=== PATIENT | male | born 1945 | race Caucasian/White ===

== ENCOUNTER 2016-06-17 06:55 | Inpatient (IN) | payer MEDICARE, OTHER ==
[2016-06-06 12:28] LABS: BASOPHILS 0.6 %; BASOPHILS ABSOLUTE 0.04 10/3/uL (0.0-0.16); EOSINOPHILS 2.3 %; EOSINOPHILS ABSOLUTE 0.15 10/3/uL (0.0-0.53); HEMATOCRIT 38.1 % (40.0-51.0); HEMOGLOBIN 12.6 g/dL (13.6-17.8); IMMATURE GRANULOCYTES 0.3 %; IMMATURE GRANULOCYTES ABSOLUTE 0.02 10/3/uL (0.0-0.11); LYMPHOCYTES 22.8 %; LYMPHOCYTES ABSOLUTE 1.47 10/3/uL (0.67-4.30); MEAN CORPUS HGB CONC 33.1 g/dL (32.0-36.0); MEAN CORPUSCULAR HEMOGLOB 28.8 pg (26.0-34.0); MEAN CORPUSCULAR VOLUME 87.2 fL (80-100); MEAN PLATELET VOLUME 9.2 fL (9.2-13.0); MONOCYTES 7.6 %; MONOCYTES ABSOLUTE 0.49 10/3/uL (0.21-1.20); NEUTROPHILS 66.4 %; NEUTROPHILS ABSOLUTE 4.27 10/3/uL (2.02-8.40); PLATELET COUNT 242 10/3/uL (150-400); RBC DISTRIBUTION WIDTH 14.1 % (12.0-16.0); RED CELL COUNT 4.37 10/6/uL (4.7-6.1); WHITE BLOOD CELLS 6.4 10/3/uL (4.5-10.5)
[2016-06-06 12:31] LABS: MANUAL DIFF NO %
[2016-06-06 12:35] LABS: INTERNATIONAL NORMAL RATI 1.2 UNITS (-)
[2016-06-06 12:47] LABS: A/G RATIO 1.3 (0.7-1.9); ALBUMIN 3.5 G/DL (3.5-5.0); ALKALINE PHOSPHATASE 104 U/L (45-117); BUN (BLOOD UREA NITROGEN) 11 MG/DL (6-23); CHLORIDE, SERUM 104 MMOL/L (96-112); CO2 (CARBON DIOXIDE) 30 MMOL/L (24-34); CREATININE 1.08 MG/DL (0.70-1.30); GFR AFRICAN AMERICAN 81 ML/MIN (>=60); GFR NON AFRICAN AMERICAN 70 ML/MIN (>=60); GLOBULIN 2.8 G/DL (2.5-4.1); POTASSIUM, SERUM 5.1 MMOL/L (3.5-5.3); SGOT(AST) 78 U/L (5-40); SGPT(ALT) 93 U/L (5-65); SODIUM, SERUM 138 MMOL/L (135-148); TOTAL BILIRUBIN 0.5 MG/DL (0-1.2); TOTAL PROTEIN 6.3 G/DL (6.0-8.5)
[2016-06-06 12:48] LABS: GLUCOSE, SERUM 89 MG/DL (60-99)
[2016-06-06 12:54] LABS: B NATRIURETIC PEPTIDE (BNP) 425.4 PG/ML (< 100.0)
[2016-06-06 12:56] LABS: ASCORBIC ACID (UR NOT ORDER) 40 (NEG); BILIRUBIN, URINE NEGATIVE (NEG); KETONE, URINE NEGATIVE (NEG); LEUKOCYTE ESTERASE(NOT OR NEG (NEG); WBC (NOT ORDERED) (RFLEX) < 1 (0-5)
[2016-06-06 22:10] LABS: GLYCOHEMOGLOBIN (HbA1c) 7.2 % (4.7-6.1)
--- NOTE | ~2016-06-17 | TEE ---
Transesophageal Echocardiogram [facility] [address] [place]. [address] NAME: SRI JAQUEZ SR : 47 STATUS : ADM IN [facility]#: [id number] AGE: 71 ADM/REG DATE : 06/17/16 MR#: [id number] REPORT SERV DATE: 06/18/16 DICTATED BY: DANN MCDERMOTT DATE: 06/17/16 REPORT STATUS : Draft TRANSCRIBED BY: MODL DATE: 06/17/16 REQUESTING: TAVR team including Dr. Kearns, Dr. Locke, and Dr. Donahue. INDICATIONS: This is a 71-year-old male, preparing for transcatheter aortic valve replacement due to severe nonoperative aortic stenosis, however prior to procedures starting and after anesthesia, the patient was noted to have ventricular tachycardia. Requested for urgent FORTINO prior to proceeding. Sedation was per Anesthesia and esophageal intubation was per Anesthesia. The remainder of FORTINO was per Cardiology. FINDINGS: CHAMBERS: 1. The left ventricle appears grossly normal in size. The visually estimated LVEF is 25%. This is reduced from 45%-50% on 01/24/2016 echo. There was severe global hypocontractility with inferior-inferoseptal akinesis. There was no mass or thrombus seen. 2. The left atrium appeared mildly enlarged. 3. The right ventricle appeared grossly normal in size with low-normal systolic function. 4. The right atrium appeared grossly normal in size. Superior and inferior vena cava appeared normal. VALVES: 1. The aortic valve morphology is trileaflet. It is heavily calcified and sclerotic with severely restricted mobility. There was no significant aortic regurgitation seen. 2. The mitral valve morphology is normal. There is moderate mitral annular calcification with thickened/sclerotic leaflets and restricted mobility. Visually estimated moderate mitral stenosis which correlates with the previous mitral valve area of 1.3 cm2 by invasive hemodynamics. 3. The pulmonic valve was not adequately visualized. 4. The tricuspid valve morphology is normal with fully mobile leaflets. Tricuspid regurgitation was not assessed. OTHER: 1. There was no pericardial effusion. The interatrial septum appeared intact. There was no pleural effusion. The descending thoracic aorta was not fully evaluated. 2. 3D interrogation of the aortic valve was performed with personal online manual manipulation confirming a trileaflet valve with severe calcific degeneration and sclerosis with a severely restricted mobility. 3. Test then terminated as the patient was awakening after anesthesia reversal. Transcatheter aortic valve replacement was canceled due to worsening LVEF and ventricular dysrhythmia. CONCLUSION: 1. 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 2. LV SIZE AT THE UPPER LIMITS OF NORMAL WITH SEVERE SYSTOLIC DYSFUNCTION, EF 20%. REGIONAL WALL MOTION ABNORMALITIES OUTLINED ABOVE. 3. MILD BIATRIAL ENLARGEMENT. 4. MODERATE MITRAL STENOSIS BY VISUAL ESTIMATE, CORRELATING WITH PREVIOUS DOCUMENTATION. Transesophageal Echocardiogram [address] [address] NAME: SRI JAQUEZ : 47 STATUS : ADM IN [facility]#: [id number] AGE: 71 ADM/REG DATE : 06/17/16 MR#: [id number] REPORT SERV DATE: 06/18/16 DICTATED BY: DANN MCDERMOTT. DATE: 06/17/16 REPORT STATUS : Draft TRANSCRIBED BY: NEEL DATE: 06/17/16 OMARA/NEEL Dann Mcdermott M.D. / [id number] CC: Kpi Kearns M.D.
--- NOTE | ~2016-06-17 | OP ---
Record Of Operation [facility] [address] [place]. [address] NAME: SIR JAQUEZ SR : 47 STATUS : ADM IN PAT#: [id number] AGE: 71 ADM/REG DATE : 06/17/16 MR#: [id number] REPORT SERV DATE: 06/17/16 DICTATED BY: GUDELIA AGUAYO DATE: 06/17/16 REPORT STATUS : Draft TRANSCRIBED BY: MODL DATE: 06/17/16 DATE OF PROCEDURE: 06/17/2016 DIAGNOSES: 1. Aortic stenosis. 2. Coronary artery disease, status post previous coronary bypass grafting. 3. Severe peripheral vascular disease. 4. Zhb-zdhtglz-kgaxzdlxj diabetes mellitus. POSTPROCEDURAL DIAGNOSES: Include tachycardia with decreased ventricular function and hyperkalemia. PROCEDURE PERFORMED: None. INDICATIONS: Include severe aortic valve stenosis. The patient was a 71-year-old gentleman with history of severe peripheral vascular disease and severe aortic valve stenosis. A previous coronary bypass grafting in 2003 by me. Unfortunately, he continued to smoke and he has had progressive shortness of breath and dyspnea with exertion. He denies any significant chest discomfort. He was evaluated and underwent echocardiogram demonstrated severe aortic valve stenosis. He is considered a candidate for aortic valve replacement, and I saw the patient. I felt the patient was very high risk for reoperation. His surgical mortality was predicted at 7.7% with morbidity and mortality greater than 30%. We discussed possible TAVR with the patient and his family, and they wished to proceed with this. He was presented to TAVR conference and because of peripheral vascular calcifications and disease, the patient was not a candidate for transfemoral approach for TAVR. We discussed possible left subclavian approach and this was deemed possible. This was re-presented to patient and after discussion of the operation, indications, and risks, they wished to proceed. FINDINGS: 1. On entry into the operating suite, the patient's heart rate between 120 and 140 beats per minute. Blood pressure was 90 to 110s systolic. The echocardiogram after intubation demonstrated global hypokinesis with very severe aortic valve. 2. Hyperkalemia in the operating room was noted with potassium of 6 and 6.2. 3. We canceled the case at this time because of unexplained tachycardia with hyperkalemia and global hypokinesis. PROCEDURE IN DETAIL: The patient was brought to the operating suite, moved over to the operating suite table, and laid in supine position. EKGs were attached and the patient's heart rate was 110 to 130. He was intubated without difficulty, given Diprivan for sedation by Anesthesia, and heart rate remained 110 to 140 beats per minute. Blood pressure was not hypotensive, but trended downward in the 90s to 110 systolic. We tried right through lines that had been placed by Anesthesia. The transvenous temporary pacing catheter was placed in the right ventricle and attempted pacing of the heart and felt that the patient had possible end ventricular tachycardia. He was cardioverted using 300 joules of energy in the external paddles. The heart remained tachycardiac at 120 to 130 beats per minute. Record Of [place] [address] [facility] [place]. [address] NAME: SRI JAQUEZ : 47 STATUS : ADM IN PAT#: [id number] AGE: 71 ADM/REG DATE : 06/17/16 MR#: [id number] REPORT SERV DATE: 06/17/16 DICTATED BY: GUDELIA AGUAYO DATE: 06/17/16 REPORT STATUS : Draft TRANSCRIBED BY: NEEL DATE: 06/17/16 At this time, routine labs presented in the operating suite and was noted that his potassium was 6.0, repeat potassium was 6.2. At this point, because of concern about tachycardia and hyperkalemia, the pacing Hardin was brought back into the superior vena cava. FORTINO probe was then placed and examination demonstrated global hypokinesis. Changes consistent with severe aortic valve stenosis were also noted. At this point, re-conferred with Anesthesia and all operating proceduralists, and it was felt that the patient should have the case canceled today for evaluation for tachycardia and hyperkalemia. The patient was taken to the intensive care unit where he stabilized and underwent further evaluation. We talked with the family and they understood reasons for discontinuing procedure. Family did note that the night before the procedure, the patient had nocturnal diaphoresis and the patient was very nervous. No antecedent infections were noted by the patient's . KUN/NEEL Gudelia Aguayo M.D. / [id number] CC: Gudelia Aguayo M.D.
--- NOTE | ~2016-06-17 | PRECARD ---
H&P [facility] [address] [place]. [address] NAME: SRI JAQUEZ SR : 47 STATUS : ADM IN [facility]#: [id number] AGE: 71 ADM/REG DATE : 06/17/16 MR#: [id number] REPORT SERV DATE: 06/17/16 DICTATED BY: DARCI RIVERA DATE: 06/17/16 REPORT STATUS : Draft TRANSCRIBED BY: MODHari DATE: 06/17/16 DATE OF ADMISSION: 06/17/2016 PRIMARY HAND SEWER SHOES: Darci Rivera M.D. REASON FOR ADMISSION: Tachycardia and hyperkalemia noted in the OR prior to transcatheter aortic valve implantation. SOURCE: The patient and his chart. HISTORY OF PRESENT ILLNESS: Mr. 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 He also has severe peripheral vascular disease and acute on chronic systolic congestive heart failure. He was scheduled for transcatheter aortic valve implantation today. However, when he arrived to the OR, his heart rate was 130 beats per minute. He underwent sedation with propofol and Precedex, and was intubated. A temporary transvenous pacemaker was placed temporarily. However, when it was tested, the patient went into ventricular tachycardia and the pacer was removed, and he was synchronized cardioverted to sinus tachycardia with wide bundle-branch block. A potassium was checked with an i-STAT device, which was 6.2 and full labs were drawn, and the procedure was terminated. He was allowed to wake up and extubated. He was not complaining of any chest pain before or after intubation. His heart rate remained elevated. Blood pressure was acceptable. The FORTINO was performed during intubation, which revealed globally depressed left ventricular systolic function with inferoapical akinesis with global EF lower than previously stated. There was no pericardial effusion. The patient was transported to the ICU for further care. Upon arrival, he was not having any chest pain or shortness of breath. His family reports that he had a drenching sweat last night of unclear etiology. REVIEW OF SYSTEMS: All other systems are negative. ALLERGIES: PER MY PREVIOUS NOTE. HOME MEDICATIONS: As per my previous note. 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 FAMILY HISTORY: Please see my previous note. SOCIAL HISTORY: Please see my previous note. PHYSICAL EXAMINATION: H&P [facility] [address] [facility] [place]. [address] NAME: SRI JAQUEZ SR : 47 STATUS : ADM IN [facility]#: [id number] AGE: 71 ADM/REG DATE : 06/17/16 MR#: [id number] REPORT SERV DATE: 06/17/16 DICTATED BY: DARCI RIVERA DATE: 06/17/16 REPORT STATUS : Draft TRANSCRIBED BY: NEEL DATE: 06/17/16 GENERAL: He is a well-developed, well-nourished, elderly white man, in no acute distress. VITAL SIGNS: Heart rate is 130, blood pressure is 140/80, temperature is grossly afebrile. HEENT: Sclerae anicteric. Lips without cyanosis. Carotids 2+ and symmetrical. Bilateral bruits versus transmitted murmurs. No JVD. No thyromegaly. LUNGS: Clear to auscultation. No use of accessory muscles. CHEST: Healed sternotomy. HEART: Regular rate and rhythm with 3/6 systolic murmur. No heaves or thrills. ABDOMEN: Positive bowel sounds. Soft, nontender. EXTREMITIES: Pulses 1+ and symmetrical. No cyanosis, clubbing, or edema. BACK: No CVA tenderness. MUSCULOSKELETAL: Good tone. NEURO: Alert and oriented x3. EKG and labs are pending. IMPRESSION: 1. Wide-complex tachycardia in OR, of unclear etiology. 2. Depressed left ventricular systolic function compared to previous assessment by FORTINO. 3. Reportedly hyperkalemia by high stat measurement. 4. Severe aortic stenosis. The patient was to be admitted for TAVR today. 5. High surgical risk. 6. Coronary artery disease, status post coronary artery bypass grafting. 7. Severe peripheral artery disease. 8. 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 RECOMMENDATIONS: 1. Canceled TAVR today. 2. ICU care. 3. Check full labs and complete database. 4. Extubate and allow patient to wake up. 5. Further recommendations following the above. NALINI/RENETTAL Darci Rivera M.D. / [id number] CC: Kip Kearns M.D.
[~2016-06-17 06:55] MED LIST: ACIDOPHILU1 PO; ANDRODERM TOP; ARICEPT10 PO; ASAB PO; ATEN50 PO; BEN25 PO; CALTRA600D PO; FISH-EPA1000 MG PO; FOLIC PO; FORTAMET1000 MG PO; GLUCOPHAGE1000 MG PO; GLUCOPHXR PO; GLUCXL2.5 PO; HEMOCYTE324 MG PO; HUMALOGPEN SC; JANUVIA100 MG PO; LAMICTAL10 PO; LANTUS SC; LANTUSCART SC; LIPITOR40 PO; LIPITOR80 MG PO; MEDROL32 MG PO; MULTIPLE VIT PO; NAMENDA10 MG PO; NIASPAN500 PO; NOR75 PO; NOVOLOG SC; NOVOPEN SC; OMEGA-3 KRILL PO; OS500+D PO; PEP20 PO; PLAVIX PO; PLETAL50 PO; PRILO PO; PRILOSEC40 MG PO; PRIM50B PO; PRIN10 PO; SEROQUEL1C PO; SEROQUEL50 MG PO; VIAGRA100 MG PO; VITAMIN D1000 UNI1 PO; X5 PO; XYZAL5 MG; XYZAL5 MG PO
[2016-06-17 09:22] LABS: TEG - ANGLE 67.2 DEG (53-72); TEG - RATE 6.8 MIN (5.0-10.0)
[2016-06-17 09:23] LABS: TEG - COAGULATION INDEX 0.3 (-3 TO 3); TEG - MAXIMUM AMPLITUDE 65.3 MM (50-70)
[2016-06-17 09:26] LABS: MAX AMP (ADP) 51.9 MM (35-68); TEG PLAVIX/EFFIENT/TICLID(ADP) 25.7 % INHIB (< 40)
[2016-06-17 12:09] LABS: BASOPHILS 0 %; EOSINOPHILS 0 %; HEMATOCRIT 40.4 % (40.0-51.0); HEMOGLOBIN 13.6 g/dL (13.6-17.8); IMMATURE GRANULOCYTES 0.3 %; IMMATURE GRANULOCYTES ABSOLUTE 0.02 10/3/uL (0.0-0.11); LYMPHOCYTES ABSOLUTE 0.58 10/3/uL (0.67-4.30); MEAN CORPUS HGB CONC 33.7 g/dL (32.0-36.0); MEAN CORPUSCULAR HEMOGLOB 28.7 pg (26.0-34.0); MEAN CORPUSCULAR VOLUME 85.2 fL (80-100); MEAN PLATELET VOLUME 9.4 fL (9.2-13.0); MONOCYTES 0.8 %; MONOCYTES ABSOLUTE 0.06 10/3/uL (0.21-1.20); NEUTROPHILS 90.9 %; NEUTROPHILS ABSOLUTE 6.61 10/3/uL (2.02-8.40); PLATELET COUNT 180 10/3/uL (150-400); RED CELL COUNT 4.74 10/6/uL (4.7-6.1); WHITE BLOOD CELLS 7.3 10/3/uL (4.5-10.5)
[2016-06-17 12:10] LABS: MANUAL DIFF NO %
[2016-06-17 12:27] LABS: BUN (BLOOD UREA NITROGEN) 16 MG/DL (6-23); CALCIUM, SERUM 8.2 MG/DL (8.5-10.4); CHLORIDE, SERUM 103 MMOL/L (96-112); CK-MB 4.6 NG/ML; CO2 (CARBON DIOXIDE) 29 MMOL/L (24-34); CPK 164 U/L (0-200); GFR AFRICAN AMERICAN 79 ML/MIN (>=60); GFR NON AFRICAN AMERICAN 68 ML/MIN (>=60); GLUCOSE, SERUM 213 MG/DL (60-99); POTASSIUM, SERUM 4.5 MMOL/L (3.5-5.3); SODIUM, SERUM 141 MMOL/L (135-148); TROPONIN I 0.02 NG/ML (<0.05)
[2016-06-17 12:54] LABS: INTERNATIONAL NORMAL RATI 1.2 UNITS (-); PROTIME (NOT ORD) 15.3 SEC (12.0-14.5)
[2016-06-17 12:55] LABS: PARTIAL THROMBO TIME 34.1 SEC (22.5-37.2)
[2016-06-17 13:44] LABS: PROCALCITONIN <0.05 ng/mL (<0.5)
[2016-06-17 18:59] LABS: CK-MB 6.5 NG/ML; CKMB INDEX (NOT ORD) 4.1
[2016-06-18 00:48] LABS: CK-MB 7.4 NG/ML
[2016-06-18 00:55] LABS: CKMB INDEX (NOT ORD) 4.7; TROPONIN I 0.8 NG/ML (<0.05)
[2016-06-18 04:33] LABS: BUN (BLOOD UREA NITROGEN) 19 MG/DL (6-23); CALCIUM, SERUM 8.4 MG/DL (8.5-10.4); CHLORIDE, SERUM 102 MMOL/L (96-112); CO2 (CARBON DIOXIDE) 28 MMOL/L (24-34); CREATININE 1.06 MG/DL (0.70-1.30); GFR AFRICAN AMERICAN 83 ML/MIN (>=60); GFR NON AFRICAN AMERICAN 71 ML/MIN (>=60); POTASSIUM, SERUM 4.5 MMOL/L (3.5-5.3); SODIUM, SERUM 138 MMOL/L (135-148)
[2016-06-18 04:58] LABS: GLUCOSE, SERUM 141 MG/DL (60-99)
[2016-06-18 06:37] LABS: CK-MB 6.7 NG/ML
[2016-06-18 06:39] LABS: CKMB INDEX (NOT ORD) 4.8; TROPONIN I 1.25 NG/ML (<0.05)
[2016-06-18 07:20] LABS: BASOPHILS 0.2 %; BASOPHILS ABSOLUTE 0.02 10/3/uL (0.0-0.16); EOSINOPHILS 1.3 %; EOSINOPHILS ABSOLUTE 0.11 10/3/uL (0.0-0.53); HEMATOCRIT 38.7 % (40.0-51.0); HEMOGLOBIN 12.8 g/dL (13.6-17.8); IMMATURE GRANULOCYTES 0.1 %; IMMATURE GRANULOCYTES ABSOLUTE 0.01 10/3/uL (0.0-0.11); LYMPHOCYTES 15.3 %; LYMPHOCYTES ABSOLUTE 1.33 10/3/uL (0.67-4.30); MEAN CORPUS HGB CONC 33.1 g/dL (32.0-36.0); MEAN CORPUSCULAR HEMOGLOB 28.4 pg (26.0-34.0); MEAN PLATELET VOLUME 9.1 fL (9.2-13.0); MONOCYTES 9.1 %; MONOCYTES ABSOLUTE 0.79 10/3/uL (0.21-1.20); NEUTROPHILS ABSOLUTE 6.43 10/3/uL (2.02-8.40); PLATELET COUNT 173 10/3/uL (150-400); RBC DISTRIBUTION WIDTH 14.4 % (12.0-16.0); WHITE BLOOD CELLS 8.7 10/3/uL (4.5-10.5)
[2016-06-18 07:25] LABS: MANUAL DIFF NO %
[2016-06-19 05:51] LABS: CALCIUM, SERUM 8.3 MG/DL (8.5-10.4); CHLORIDE, SERUM 99 MMOL/L (96-112); CO2 (CARBON DIOXIDE) 28 MMOL/L (24-34); GFR AFRICAN AMERICAN 79 ML/MIN (>=60); GFR NON AFRICAN AMERICAN 68 ML/MIN (>=60); POTASSIUM, SERUM 4.2 MMOL/L (3.5-5.3); SODIUM, SERUM 139 MMOL/L (135-148)
[2016-06-19 05:53] LABS: BUN (BLOOD UREA NITROGEN) 30 MG/DL (6-23); GLUCOSE, SERUM 100 MG/DL (60-99)
[2016-06-19] MEDS ORDERED: COREG12 PO (18:29)
== END 2016-06-19 19:59 | disposition home or self-care (01) | DRG 307 ==
LOC: SDC/OF 06:55 → CVICU 12:35 → 5NO 06-18 14:11
PROVIDERS: Internal Medicine Cardiovascular Disease; Thoracic Surgery (Cardiothoracic Vascular Surgery)
PROC: 5A1935Z Respiratory Ventilation, Less than 24 Consecutive Hours (ICD-10-PCS; 2016-06-17)
PROC: B246ZZ4 Ultrasonography of Right and Left Heart, Transesophageal (ICD-10-PCS; 2016-06-17)
PROC: 02HQ32Z Insertion of Monitoring Device into Right Pulmonary Artery, Percutaneous Approach (ICD-10-PCS; 2016-06-17)
PROC: 0BH17EZ Insertion of Endotracheal Airway into Trachea, Via Natural or Artificial Opening (ICD-10-PCS; principal; 2016-06-17 11:00)
DX: I35.0 Nonrheumatic aortic (valve) stenosis (principal); I47.2 Ventricular tachycardia; E87.5 Hyperkalemia; I51.81 Takotsubo syndrome; I25.10 Atherosclerotic heart disease of native coronary artery without angina pectoris; Z95.1 Presence of aortocoronary bypass graft; I73.9 Peripheral vascular disease, unspecified; E11.9 Type 2 diabetes mellitus without complications; Z53.09 Procedure and treatment not carried out because of other contraindication
CPT/HCPCS: 36415; 71010; 71020; 80048; 80053; 81001; 82330; 82550; 82553; 82803; 82947; 82962; 83036; 83735; 83880; 84132; 84145; 84295; 84484; 85014; 85025; 85347; 85384; 85576; 85576-59; 85610; 85730; 86850; 86900; 86901; 86920; 87641; 93005; A9270-GY; C8929; J0690; J1200; J2250; J2405; J2710; J2795; J3010; Q9957